=== PATIENT | female | born 1975 | race Caucasian/White ===

== ENCOUNTER 2020-01-10 18:15 | Emergency (ER) | payer OTHER ==
--- NOTE | 2020-01-10 19:16 | ED Physician Documentation ---
PD HPI UPPER EXT INJURY - Stated complaint Stated Complaint: LT SHOULDER PX - Chief complaint Chief Complaint: Ext Problem - History obtained from History obtained from: Patient - History of Present Illness Location: Left, Shoulder Where injury occurred: Home Timing - onset: How many hours ago (2) Timing - duration: Hours (2) Timing - details: Abrupt onset Pain level max: 8 Pain level now: 5 Improved by: Rest Worsened by: Moving, Palpating - Additonal information Additional information: Patient is a 44-year-old female who presents to the emergency department with left shoulder pain. She states that she dislocated the shoulder at home and it spontaneously relocated. She wants to ensure it is in the correct position. She is currently in a sling and swath. She states this is happened to her several times in the past. No numbness or tingling. Better with sling, worse with movement. 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: Hysterectomy - Allergies Allergies/Adverse Reactions: Allergies Allergy/AdvReac Type Severity Reaction Status Date / Time ketorolac [From Toradol] Allergy Unknown Verified 01/10/20 18:24 levofloxacin [From Levaquin] Allergy Anaphylaxis Verified 01/10/20 18:24 - Social History Does the pt smoke?: No Smoking Status: Never smoker Does the pt drink ETOH?: No Does the pt have substance abuse?: No - Immunizations Immunizations are current?: Yes PD ED PE NORMAL - Vitals Vital signs reviewed: Yes - General General: Alert and oriented X 3, No acute distress, Well developed/nourished - HEENT HEENT: Moist mucous membranes - Neck Neck: Supple, no meningeal sign - Cardiac Cardiac: RRR, Strong equal pulses - Respiratory Respiratory: No respiratory distress, Clear bilaterally - Derm Derm: Warm and dry - Extremities Extremities: Other (Mild tenderness to palpation about the left shoulder. No deformity. Neurovascular intact) - Neuro Neuro: Alert and oriented X 3 - Psych Psych: Normal mood, Normal affect Results - Vitals Vitals: Vital Signs - 24 hr 11/13/20 11/13/20 18:20 19:59 Temperature 36.2 C L 36.9 C Heart Rate 95 70 Respiratory 17 18 Rate Blood Pressure 168/114 H 164/100 H O2 Saturation 100 100 Oxygen O2 Source Room air - Rads (name of study) Left shoulder x-ray Radiology: Prelim report reviewed, EMP read contemporaneously, See rad report (No acute abnormality) PD MEDICAL DECISION MAKING - ED course Complexity details: reviewed results, re-evaluated patient, considered differential, d/w patient ED course: 44-year-old female presents to the emergency department with left shoulder pain after a spontaneous dislocation relocation at home. We will keep her in the sling and swath. X-ray performed. No acute findings. Neurovascular intact. Axillary nerve intact. Patient counseled regarding signs and symptoms for which I believe and urgent re-evaluation would be necessary. Patient with good understanding of and agreement to plan and is comfortable going home at this time This document was made in part using voice recognition software. While efforts are made to proofread this document, sound alike and grammatical errors may occur. Departure - Departure Disposition: 01 Home, Self Care Clinical Impression: Shoulder dislocation Qualifiers: Encounter type: initial encounter Laterality: left Qualified Code(s): S43.005A - Unspecified dislocation of left shoulder joint, initial encounter Condition: Good Instructions: ED Dislocation Shoulder Redu Follow-Up: Jovanni Lira MD [Primary Care Provider] - Within 1 week Comments: You can use the Vicodin as needed for pain. Stay in the sling at home for the next several days.. Return if you worsen. Do not drink alcohol or drive while on narcotic pain medicine. Note that many narcotic pain relievers also contain tylenol/acetaminophen. Please ensure that your total dose of acetaminophen from all sources does not exceed 3 grams (3000mg) per day. You may constipated on this medication, take a stool softener such as "Colace" twice a day while you are on it. Also recommend a [id number] laxative such as senna or MiraLAX any day that you do not have a bowel movement. If you received narcotic pain medication in the emergency department, do not drive or operate machinery for the next 24 hours. Discharge Date/Time: 01/10/20 20:09
--- NOTE | 2020-01-10 19:29 | XRAY Report ---
PROCEDURE: Shoulder 3 View LT INDICATIONS: L shoulder pain TECHNIQUE: 4 views of the shoulder were acquired. COMPARISON: None. FINDINGS: Bones: No fractures or dislocations. Mild degenerative changes at the acromial clavicular joint. No suspicious bony lesions. Visualized ribs appear intact. Soft tissues: No suspicious soft tissue calcifications. IMPRESSION: The glenohumeral joint appears in grossly normal alignment on the given images. Reviewed by: Charlotte House MD on 01/10/2020 7:28 PM PST Approved by: Charlotte House MD on 01/10/2020 7:28 PM PST Station ID: [id number]
[2020-01-10] MEDS ORDERED: HYDROcod/ACET 5/325 Prepack 4 PO STA (19:46)
[2020-01-10 19:59] VITALS: BP 164/100
== END 2020-01-10 20:09 | disposition home or self-care (01) ==
LOC: ED 18:15
DX: S43.005A Unspecified dislocation of left shoulder joint, initial encounter (principal); X50.9XXA Other and unspecified overexertion or strenuous movements or postures, initial encounter; Y92.009 Unspecified place in unspecified non-institutional (private) residence as the place of occurrence of the external cause
CPT/HCPCS: 99283; 99284